=== PATIENT | female | born 1975 | race Caucasian/White ===

== ENCOUNTER → 2018-02-14 14:42 | Outpatient (CLI) | payer BC, SELFPAY ==
--- NOTE | 2018-02-14 14:47 | MM_ITS ---
MM Dig SC mamm implant BI CAD ORDERING PHYSICIAN : Gume Russo MD PATIENT AGE: 43 years GENDER: Female COMPARISON: September 2014 &, 2015, March 2017 INDICATION: ITS.REASON: screenining mammomgram. No hormones. No new complaints. Bilateral breast implants . TECHNIQUE: Shayne technique utilized. CC & MLO images were obtained of the breast tissue overlying implant, as well as a second set of images including the breast implant. Mammography is inherently limited due to the implants is a could obscure areas of breast R2 CAD reviewed. FINDINGS: . Bilateral breast implants again evident; with [id number] density overlying fibroglandular elements within overlying breast tissue. Implants limit mammography by obscuring Portions of the breast, however between the multiple views we see no significant new findings and is stable appearance and architecture. Minor nodularity bilaterally is been seen previously again noted. Previous ultrasound demonstrated small cyst at both right and left breast previously -as on ultrasound from 2013. The small cyst would correlate with the small areas of nodularity.. Joint of these areas are stable with with one of the larger areas at the right breast smaller & less evident today. I believe these can be followed safely. Bilateral follow-up in one year adequate but should be emphasized and encouraged IMPRESSION: Bilateral breast implants. No significant new findings. Bilateral follow-up one year recommended and should be encouraged We again see some scattered very small areas of nodularity in both breasts- most likely reflecting scattered cysts which is been previously seen previous years ultrasound. Multiplicity of these small rounded densities also supports benign character BI-RADS Category: 2 Benign Finding(s) RECOMMENDED FOLLOW-UP: 1YR 1 YEAR FOLLOW-UP (A letter has been sent to the patient regarding results of the study.)
== END ==
PROVIDERS: Family Provider Family Medicine; PCP Internal Medicine; Visit Provider Obstetrics & Gynecology
DX: Z12.31 Encounter for screening mammogram for malignant neoplasm of breast (principal)
CPT/HCPCS: 77067

== ENCOUNTER → 2019-05-15 09:43 | Outpatient (CLI) | payer BC, SELFPAY ==
--- NOTE | 2019-05-15 09:45 | MM_ITS ---
PROCEDURE: MM DIG SC MAMM IMPLANT BI CAD Patient Age:44Y CLINICAL INDICATION: screening COMPARISON: [facility] DIG MAMM-SCREEN IMPLANT from 09/25/2014 [facility] DIG MAMM-SCREEN IMPLANT from 10/14/2015 [facility] DIG MAMM-SCREEN IMPLANT W/CAD from 04/01/2017 [facility] MM Dig SC mamm implant BI CAD from 02/14/2018 TECHNIQUE: George technique utilized: Images including implant as well separate set breast images of tissue overlying the implant at both right and left breast, in both CC and MLO projection were performed. R2 CAD reviewed. FINDINGS: . Moderate diffuse fibroglandular elements in the overlying breast but I would note that implants obscure portions of the breast and inherently somewhat decrease sensitivity of mammography but No significant new findings in either breast compared to prior studies. Mild to moderate fibroglandular elements bilaterally with overall relatively low density breast. Views of bilateral breast implants again evident and appear unchanged on mammography since previous studies. The overlying breast tissue shows no new area of significant concern. Minimal to moderate fibroglandular elements but no dominant or suspicious mass but no suspicious calcifications. IMPRESSION: Stable bilateral mammogram with implants. No suspicious densities or findings. No significant new findings. Bilateral follow-up 1 year recommended BI-RAD Category: 1 Negative FOLLOW-UP: 1YR 1 Year Follow-up (A letter has been sent to the patient regarding results of the study.) Dictated by: Mik Mejía MD 05/15/2019 11:56 Electronically signed by Mik Mejía MD in [place] 05/16/2019 11:52
== END ==
PROVIDERS: PCP Internal Medicine; Visit Provider Obstetrics & Gynecology
DX: Z12.31 Encounter for screening mammogram for malignant neoplasm of breast (principal)
CPT/HCPCS: 77067